=== PATIENT | male | born 1955 | race Caucasian/White ===

== ENCOUNTER 2016-07-17 01:34 | Inpatient (IN) | payer OTHER ==
[~2016-07-17] VITALS: Ht 182.9 cm; Wt 119.1 kg
[2016-07-17 01:53] LABS: BASOPHIL 0.2 % (0-2); EOSINOPHIL 1.2 % (0-5); HCT 41.7 % (42.0-52.0); HGB 13.8 g/dl (13.2-18.0); LYMPHOCYTE 15.9 % (15-48); MCH 28.3 pg (25.0-31.0); MCHC 33.1 g/dL (32.0-36.0); MCV 85.5 fL (78.0-100.0); MONOCYTE 9.7 % (0-12); MPV 9.9 fL (6.0-9.5); PLT 254 K/uL (150-400); RBC 4.88 M/uL (4.70-6.00); WBC 12.6 K/uL (4.0-10.5)
[2016-07-17 02:05] LABS: INR 1.09 (0.9-1.2); PROTHROMBIN TIME 13.7 SECONDS (11.7-14.0); PTT 27.1 SECONDS (23.2-31.4)
[2016-07-17 02:06] LABS: D-DIMER 0.82 ug/mLFEU (0.00-0.41)
[2016-07-17 02:10] LABS: ALBUMIN 3.6 g/dL (3.5-5.0); BILIRUBIN - TOTAL 0.5 mg/dL (0.1-1.0); GLOBULIN (CALCULATION) 2.6 g/dL (2.2-4.2); POTASSIUM 3.9 mmol/L (3.5-5.1); TOTAL PROTEIN 6.2 g/dL (6.4-8.3)
[2016-07-17 02:13] LABS: TROPONIN T 0.057 ng/mL
[2016-07-17 02:19] LABS: FT4 (FREE T4) 1.12 ng/dL (0.93-1.70); TSH (THYROID STIM HORMONE) 3.2 uIU/mL (0.270-4.200)
[2016-07-17 02:29] LABS: CKMB 7.37 ng/mL (0.97-4.94)
[2016-07-17 03:06] LABS: BILIRUBIN NEGATIVE (NEGATIVE); BLOOD 1+ Ery/uL (NEGATIVE); CLARITY CLEAR (CLEAR); COLOR YELLOW (YELLOW); GLUCOSE (U) NORMAL (NORMAL); KETONE (U) NEGATIVE (NEGATIVE); LEUKOCYTES NEGATIVE Leu/uL (NEGATIVE); NITRITE NEGATIVE (NEGATIVE); PROTEIN 1+ mg/dL (NEGATIVE); SPECIFIC GRAVITY 1.025 (1.001-1.030); UROBILINOGEN 0.2 mg/dL (0.2-1.0)
[2016-07-17 03:12] LABS: SQUAMOUS EPITHELIAL CELLS RARE
[2016-07-17 03:16] LABS: AMPHETAMINES POSITIVE (NEGATIVE); BARBITURATES NEGATIVE (NEGATIVE); BENZODIAZEPINES NEGATIVE (NEGATIVE); COCAINE NEGATIVE (NEGATIVE); MARIJUANA (THC) NEGATIVE (NEGATIVE); METHADONE NEGATIVE (NEGATIVE); TRICYCLIC ANTIDEPRESSANT NEGATIVE (NEGATIVE)
[2016-07-17 13:41] LABS: TROPONIN T 0.051 ng/mL
[2016-07-17 13:42] LABS: CKMB 5.53 ng/mL (0.97-4.94)
[2016-07-17 19:23] LABS: CKMB 4.94 ng/mL (0.97-4.94); TROPONIN T 0.052 ng/mL
[2016-07-18 04:42] LABS: HCT 40.5 % (42.0-52.0); HGB 13.1 g/dl (13.2-18.0); MCH 27.7 pg (25.0-31.0); MCHC 32.3 g/dL (32.0-36.0); MCV 85.6 fL (78.0-100.0); MPV 10.2 fL (6.0-9.5); RBC 4.73 M/uL (4.70-6.00); RDW 15.1 % (11.5-14.0); WBC 13.5 K/uL (4.0-10.5)
[2016-07-18 08:41] LABS: ALBUMIN 3.2 g/dL (3.5-5.0); BILIRUBIN - TOTAL 0.4 mg/dL (0.1-1.0); GLOBULIN (CALCULATION) 2.7 g/dL (2.2-4.2); MAGNESIUM 1.77 mg/dL (1.40-2.10); POTASSIUM 3.7 mmol/L (3.5-5.1); TOTAL PROTEIN 5.9 g/dL (6.4-8.3)
[2016-07-19 04:52] LABS: HCT 40.4 % (42.0-52.0); HGB 13.1 g/dl (13.2-18.0); MCH 27.9 pg (25.0-31.0); MCHC 32.4 g/dL (32.0-36.0); MCV 86.1 fL (78.0-100.0); MPV 9.9 fL (6.0-9.5); RBC 4.69 M/uL (4.70-6.00); WBC 13.4 K/uL (4.0-10.5)
[2016-07-19 05:12] LABS: POTASSIUM 3.9 mmol/L (3.5-5.1)
[2016-07-19 11:02] LABS: BILIRUBIN NEGATIVE (NEGATIVE); BLOOD 2+ Ery/uL (NEGATIVE); CLARITY CLEAR (CLEAR); COLOR YELLOW (YELLOW); GLUCOSE (U) NORMAL (NORMAL); KETONE (U) NEGATIVE (NEGATIVE); LEUKOCYTES NEGATIVE Leu/uL (NEGATIVE); NITRITE NEGATIVE (NEGATIVE); PROTEIN TRACE (LOW) mg/dL (NEGATIVE); SPECIFIC GRAVITY 1.015 (1.001-1.030); pH 6.5 (5.0-9.0)
[2016-07-19 11:09] LABS: SQUAMOUS EPITHELIAL CELLS RARE; URINARY WBC RARE
== END 2016-07-20 12:15 | disposition other institution (70) | DRG 291 ==
LOC: FER 01:34 → FTCU 10:29
PROVIDERS: Emergency Medicine Emergency Medical Services; ADMIT Internal Medicine
DX: I50.23 Acute on chronic systolic (congestive) heart failure (principal); J18.9 Pneumonia, unspecified organism; I48.92 Unspecified atrial flutter; E83.59 Other disorders of calcium metabolism; I42.9 Cardiomyopathy, unspecified; I10 Essential (primary) hypertension; R91.1 Solitary pulmonary nodule; N29 Other disorders of kidney and ureter in diseases classified elsewhere; Z79.82 Long term (current) use of aspirin; Z83.3 Family history of diabetes mellitus; Z84.89 Family history of other specified conditions; F15.10 Other stimulant abuse, uncomplicated
CPT/HCPCS: 36415; 71010; 71020; 71275; 76705; 78227; 78579; 78580; 80048; 80053; 80061; 80305; 81001; 82150; 82550; 82553; 83605; 83690; 83735; 83880; 84439; 84443; 84484; 85025; 85379; 85610; 85730; 87040; 87449; 93005; 93970; 94010; 96372; A9537; A9539; J1940; J1956; J2270; J2805; Q9967

== ENCOUNTER 2021-04-13 22:26 | Emergency (ER) | payer OTHER | END 2021-04-14 02:00 | disposition home or self-care (01) | LOC: FER 22:26 | DX: T20.24XA Burn of second degree of nose (septum), initial encounter (principal); J45.909 Unspecified asthma, uncomplicated; I11.0 Hypertensive heart disease with heart failure; I50.9 Heart failure, unspecified; X08.8XXA Exposure to other specified smoke, fire and flames, initial encounter; Y93.89 Activity, other specified; Y92.009 Unspecified place in unspecified non-institutional (private) residence as the place of occurrence of the external cause | CPT/HCPCS: 36600; 71045; 82803 ==